=== PATIENT | female | born 1975 ===

== ENCOUNTER 2018-01-21 11:30 | Outpatient (AMBR) | payer MEDICAID, SELFPAY ==
--- NOTE | 2018-01-07 15:18 | PT.OIERPT ---
PT OP Initial Eval Patient Information Visit Reasons: left shoulder pain Medical Diagnosis: M25.51 Treatment Dx #1: L shoulder pain Start of Care: 01/07/18 Date of Onset: 1 yr ago Initial Assessment Subjective Pt is 42 yr old japanese speaking female who c/o L shoulder pain x1 yr ago when she fell onto that side in the snow. She reports continued pain that has worsened recently. She reports difficulty with reaching OH, behind the back and lifting objects. She is not working now and reports 6/10 pain from the L side of the neck down to the hand at times. PMH: valley fever, high cholesterol Imaging: X-rays with provider Pt goal: to brush her hair and dress with L shoulder Objective L shoulder AROM: FF 135 deg Abd 106 deg ER 50 deg HBB: L glute with ++ pain Strength: supraspinatus 3+/5 abductors: 3+/5 FF: 4-/5 with pain Painful arc: positive Gibson's: positive PROM: end-range pain with capsular tightness C/S AROM: limited into R rotation and sidebending TTP: L side of C/S moderately down upper trapezius to A/C joint and posterior RC Assessment Pt presentation consistent with referring Dx of RC tendinopathy of L shoulder. ROM limited in capsular pattern with pain that limits end-range tolerance into all planes but especially ER and IR. Pt may have osteophyte and she has decreased supraspinatus strength and increased pain with testing. Pt has decreased C/S ROM in all planes especially sidebending due to myofascial tightness and neural tension. Eval followed by HEP with materials. Short Term and Quantitative Analyst Goals 1. Ind with HEP 2. Improved AROM of R shoulder to 145 deg FF, 125 deg abduction and 80 deg ER 3. Improved HBB ROM to L3 4. Pt will reach OH x10 with <=4/10 pain in order to brush hair and dress independently Treatment Plan Pt has 5 visits approved and will be scheduled for 2x a week and then reassessed. 1. Manual therapy 2 Therex 3. Modalities as indicated, moist heat, ice, estim Frequency and Duration 2x a week for 6 weeks Certification Dates: 01/07/18 to 04/07/18 Office Procedures PT Procedures PT Date of Service: 01/07/18 OP PT Eval Mod Complex 30 minutes: Yes
--- NOTE | 2018-01-12 17:41 | PT.ODAYNRPT ---
PT Outpatient Daily Note Date of Service: January 12, 2018 OP Daily Note Visit Reasons: left shoulder pain Outpatient Physical Therapy Treatment Date: 01/12/18 Subjective: pt reported having some discomfort which sometimes causes a nerve pain. of the L shoulder. Objective: see flow sheet. Assessment: pt demonstrates good ROM with OH motion but did not she had elevated UT as a compensation of the L shoulder. palpated a lot of muscle tension during STM of the UT. pt had no complaints of the pressure for STM. pt felt less tension post STM. Plan: continue POC per PT. Length of Time (minutes) of Treatment: 30 Minutes Office Procedures PT Procedures PT Date of Service: 01/07/18 OP PT Eval Mod Complex 30 minutes: Yes PT Procedures PT Date of Service: 01/12/18 Therapeutic Exercise 30 minutes: Yes PT Procedures PT Date of Service: 01/07/18 OP PT Eval Mod Complex 30 minutes: Yes
--- NOTE | 2018-01-15 13:03 | PT.ODAYNRPT ---
PT Outpatient Daily Note Date of Service: January 15, 2018 OP Daily Note Visit Reasons: left shoulder pain Outpatient Physical Therapy Treatment Date: 01/15/18 Subjective: pt continues to have that nerve sharp pain from L neck down to the AC joint. she did feel less tension of the neck after last session. Objective: see flow sheet. Assessment: started with heat followed by STM to the neck and upper traps. palpated muscle tension with trigger points. pt tolerates STM with little facial expressions. advised pt to continue STM at home to decrease the trigger points. added wall slides to increase shoulder abduction ROM using towel to slide easier. added neck stretches to relieve some of the nerve tension. Plan: continue POC per PT. Length of Time (minutes) of Treatment: 30 Minutes Office Procedures PT Procedures PT Date of Service: 01/07/18 OP PT Eval Mod Complex 30 minutes: Yes PT Procedures PT Date of Service: 01/12/18 Therapeutic Exercise 30 minutes: Yes PT Procedures PT Date of Service: 01/07/18 OP PT Eval Mod Complex 30 minutes: Yes PT Procedures PT Date of Service: 01/15/18 Therapeutic Exercise 30 minutes: Yes
--- NOTE | 2018-01-19 15:15 | PT.ODAYNRPT ---
PT Outpatient Daily Note Date of Service: January 19, 2018 OP Daily Note Visit Reasons: left shoulder pain Outpatient Physical Therapy Treatment Date: 01/19/18 Subjective: pt reports feeling better since HEP. Objective: see flow sheet. Assessment: added weights light weight to the wand exercises which did not make the exercise difficult. added HBB stretch using the strap and it did cause pain and discomfort of the biceps if forced to stretch which causes limited mobility. noted IR motion was around S1 spinal area with light forcegood ROM of the shoulder abd during wall slides with slight discomfort. Plan: continue POC per PT. Length of Time (minutes) of Treatment: 30 Minutes Office Procedures PT Procedures PT Date of Service: 01/07/18 OP PT Eval Mod Complex 30 minutes: Yes PT Procedures PT Date of Service: 01/12/18 Therapeutic Exercise 30 minutes: Yes PT Procedures PT Date of Service: 01/07/18 OP PT Eval Mod Complex 30 minutes: Yes PT Procedures PT Date of Service: 01/15/18 Therapeutic Exercise 30 minutes: Yes PT Procedures PT Date of Service: 01/19/18 Therapeutic Exercise 30 minutes: Yes
--- NOTE | 2018-01-21 14:21 | PT.ODAYNRPT ---
PT Outpatient Daily Note Date of Service: January 21, 2018 OP Daily Note Visit Reasons: left shoulder pain Outpatient Physical Therapy Treatment Date: 01/21/18 Subjective: Improved shoulder OH reaching but pain (she points to sub AC space) Objective: See F/S for therex MT: scapular setting, manual isometric holds into abduction, resisted Erot in SL x10' Assessment: Ssx consistent with impingement/tendinopathy with pain into abduction. Plan: Continue per POC Length of Time (minutes) of Treatment: 30 Minutes Office Procedures PT Procedures PT Date of Service: 01/07/18 OP PT Eval Mod Complex 30 minutes: Yes PT Procedures PT Date of Service: 01/12/18 Therapeutic Exercise 30 minutes: Yes PT Procedures PT Date of Service: 01/07/18 OP PT Eval Mod Complex 30 minutes: Yes PT Procedures PT Date of Service: 01/15/18 Therapeutic Exercise 30 minutes: Yes PT Procedures PT Date of Service: 01/19/18 Therapeutic Exercise 30 minutes: Yes PT Procedures PT Date of Service: 01/21/18 Therapeutic Exercise 15 minutes: Yes Manual Esthetic Dermatologist 15 minutes: Yes
== END 2018-01-21 23:59 | disposition home or self-care (01) ==
PROVIDERS: PCP Registered Nurse; Referring Provider Registered Nurse; Visit Provider Registered Nurse
DX: M25.512 Pain in left shoulder (principal)
CPT/HCPCS: 97110; 97140; 97162